=== PATIENT | male | born 1995 | race Caucasian/White ===

== ENCOUNTER 2017-11-20 06:09 | Emergency (ER) | payer OTHER ==
--- NOTE | 2017-11-20 06:54 | EDPHY ---
H & P Stated Complaint: laceration to R chest Time Seen by Provider: 11/20/17 06:17 HPI/ROS: Chief Complaint: Chest wall laceration HPI: 22-year-old male is presenting for evaluation of a chest wall laceration that he sustained 5 days ago. Patient states that he does not fully recall events but believes he may have self-inflicted a laceration to his left chest wall while he was intoxicated several days ago after a democrat. He attempted to close the wound with super glue. It has been a little bit red around the edges and this morning woke up with bleeding in notice that opened up. No pus or purulence from the wound. He is feeling very anxious. He has a history of anxiety. He is not currently on any medications or seeing any mental health providers. Denies any suicidal or homicidal ideations. He is gera for safety. No fevers or chills. No chest pain or shortness of breath. ROS: 10 systems were reviewed and were negative except those elements noted in the HPI. PMH: Anxiety Social History: No smoking, occasional alcohol, no recreational drug use Family History: non-contributory Physical Exam: Gen: Awake, Alert, anxious HEENT: Nose: no rhinorrhea Eyes: PERRLA, EOMI Mouth: Moist mucosa Neck: Supple, no JVD Chest: Patient has a 2.5 cm partially open laceration into the subcutaneous on his left chest. There is very minimal surrounding erythema. There is no discharge. Heart: S1, S2 normal, no murmur Abd: Soft, non-tender, no guarding Back: no CVA tenderness, no midline tenderness Ext: no edema, non-tender Skin: no rash Neuro: CN II-XII intact, Sensation grossly intact, Strength 5/5 in bilateral upper and lower extremities - Personal History Current Tetanus/Diphtheria Vaccine: Unsure Current Tetanus Diphtheria and Acellular Pertussis (TDAP): Unsure - Medical/Surgical History Hx Asthma: No Hx Chronic Respiratory Disease: No Hx Diabetes: No Hx Cardiac Disease: No Hx Renal Disease: No Hx Cirrhosis: No Hx Alcoholism: No Hx HIV/AIDS: No Hx Splenectomy or Spleen Trauma: No Other PMH: anxiety, depression, cutting - Social History Smoking Status: Former smoker Constitutional: Initial Vital Signs Temperature (C) 36.4 C 11/20/17 06:11 Heart Rate 89 11/20/17 06:11 Respiratory Rate 20 11/20/17 06:11 Blood Pressure 142/78 H 11/20/17 06:11 O2 Sat (%) 99 11/20/17 06:11 O2 Delivery Mode Room Air Allergies/Adverse Reactions: No Known Allergies Allergy (Unverified 11/20/17 06:11) Home Medications: Medication Instructions Recorded Cephalexin [Keflex (*)] 500 mg PO Q6H #28 cap 11/20/17 Medical Decision Making Procedures: Procedure: Laceration repair. Verbal consent was obtained from the patient. The 2.5 cm laceration on the left chest wall was anesthetized in the usual fashion. The wound was irrigated , draped and explored to its base with a gloved finger. There were no deep structures involved. No tendon injury was identified. Given the age of the wound the edges were revised with a 15 blade scalpel to expose completely rash margins. The wound was repaired with 5, 5-0 Ethilon simple interrupted sutures. The wound repair was a complicated repair requiring revision. The procedure was performed by myself. ED Course/Re-evaluation: 22-year-old male presenting with erythema over a wound that he had super glued. I think the erythema is inflammation secondary to the glue. Does not appear infected. It is dehisced and he has concerns about the wound further opening or getting infected. I made the decision to anesthetize clean and revise the edges and Re close it. He tolerated this well. Given the age the wound and the slight erythema will start him on Keflex. He will follow up with a referral to primary care. He is also very anxious. He is gera for safety is not suicidal. I am giving a referral to [facility] for further treatment of his anxiety. Departure - Departure Disposition: Home, Routine, Self-Care Clinical Impression: Laceration, Anxiety Condition: Good Instructions: Care For Your Stitches (ED), Laceration (ED), Anxiety (ED) Additional Instructions: Sutures need to be removed in 7 days. Please take your full course of antibiotics. Please follow up with [facility] to assist you with your anxiety. Follow up with primary care physician in 3-4 days for wound check. Return to the emergency department for increasing redness, discharge or pus from the wound, fevers, chills, worsening anxiety, thoughts of harming yourself or others, or any other concerns. Referrals: Fabiana Starkey MD [[facility] Primary Care Provider] - As per Instructions [facility],. [Clinic] - As per Instructions Prescriptions: Cephalexin [Keflex (*)] 500 mg PO Q6H #28 cap
[2017-11-20 07:07] VITALS: BP 130/79
== END 2017-11-20 07:30 | disposition home or self-care (01) ==
PROC: 0HQ5XZZ Repair Chest Skin, External Approach (ICD-10-PCS; principal; 2017-11-20)
DX: S21.112A Laceration without foreign body of left front wall of thorax without penetration into thoracic cavity, initial encounter (principal); F41.9 Anxiety disorder, unspecified; X58.XXXA Exposure to other specified factors, initial encounter; Y99.8 Other external cause status